=== PATIENT | female | born 1980 | race Caucasian/White ===

== ENCOUNTER 2021-06-26 12:42 | Day surgery (SDC) | payer BC ==
[~2021-06-26] VITALS: Ht 165.1 cm; Wt 66.0 kg
[~2021-06-26 12:42] MED LIST: ACETAMINOPHEN 500 MG TABLET PO PRN; HYDROmorphone 2 MG/ML INJ. IVP PRN; IV RINGERS,LACTATED 1000ML 1,000 ML IV SCH; MORPHINE SULFATE 2 MG/ML INJ. IVP PRN; PROCHLORPERAZINE 10 MG/2 ML VIAL. IVP PRN; ceFAZolin SODIUM IV Push 1 GM VIAL. IVP PRN; fentaNYL PF VIAL 100 MCG/2 ML VIAL IVP PRN
[2021-06-26] MEDS ORDERED: FLUO10TA PO (13:15)
[2021-06-26] MEDS ORDERED: ETHI1TAB7 PO (13:15)
[2021-06-26 13:17] VITALS: BP 117/63
[2021-06-26] MEDS ORDERED: fentaNYL PF VIAL 100 MCG/2 ML VIAL ONE ×3 (13:54→15:48)
[2021-06-26] MEDS ORDERED: FAMOTIDINE 20 MG/2 ML VIAL IVP ONE (14:00)
[2021-06-26] MEDS ORDERED: ROCURONIUM 50 MG/5 ML VIAL. ONE (14:03)
[2021-06-26] MEDS ORDERED: BUPIVACAINE-EPI 0.25%-1:200000 MPF 30 ML VIAL. ONE (14:06)
[2021-06-26] MEDS ORDERED: DEXAMETHASONE SOD PHOS 4 MG/ML VIAL ONE (14:07)
[2021-06-26] MEDS ORDERED: LIDOCAINE 1% PF 5 ML VIAL. ONE (14:07)
[2021-06-26] MEDS ORDERED: PROPOFOL 10 MG/ML (20ML) VIAL. IV ONE (14:07)
[2021-06-26] MEDS ORDERED: ONDANSETRON PF 4 MG/2 ML VIAL. ONE (14:07)
[2021-06-26] MEDS ORDERED: SUGAMMADEX SODIUM 200 MG/2 ML VIAL. IVP ONE (14:15)
[2021-06-26] MEDS ORDERED: ePHEDrine PF IN SALINE 50 MG/10 ML SYRINGE. IV ONE (14:46)
[2021-06-26] MEDS ORDERED: PHENYLEPHRINE in 0.9% NACL PF 1 MG/10 ML SYRINGE. IV ONE (14:53)
--- NOTE | 2021-06-26 15:09 | PDOC4 ---
Operative Note Operative Note Date: June 262021 at 3:06 PM Preoperative diagnosis: Chronic cholecystitis cholelithiasis Postoperative diagnosis: Same Procedure: Laparoscopic cholecystectomy with fluorescein cholangiography Surgeon: Demetrio Specimen: Gallbladder Auto Glass Worker: None Dictation: Patient is a 40-year-old female with right upper quadrant abdominal pain and gallstones by ultrasound. Procedure laparoscopic cholecystectomy was explained to the patient in detail all risk benefits were also discussed including bleeding infection injury to intra-abdominal contents possible necessitating further open operations alternatives this procedure also discussed with the patient who seemed to understand and gave a verbal written consent had procedure performed. Patient was taken to the operating room placed in the supine position general anesthesia was initiated once patient was sleeping abated her abdomen was prepped and draped usual sterile fashion using ChloraPrep. Area just below the umbilicus was injected with quarter percent Marcaine with epinephrine incision was made 11 blade scalpel and a varies needle was placed within the abdomen creating pneumoperitoneum once this was complete 11 mm port was placed and a 5 mm camera was placed within the abdomen which was inspected no other abnormalities were noted 5 mm port was placed in the epigastrium a 5 mm port was placed in the right midabdomen and 5 mm port was placed in the right lateral abdomen all under direct visualization. The dome of the gallbladder is grasped retracted cephalad the infundibulum the gallbladder is grasped retracted laterally exposing the triangle adherent tissues the triangle were taken down exposing the cystic duct and cystic artery fluorescing cholangiography was performed which showed good dye within the cystic duct and common bile duct without any evidence of obstruction the cystic duct was doubly clipped and transected the cystic artery was clipped and transected the gallbladder is taken off the liver with hook electrocautery placed in Endo Catch bag removed the umbilicus. Right upper quadrant was irrigated and suctioned dry hemostasis deemed be appropriate the pneumoperitoneum was reduced all ports were removed the fascial defect at the umbilicus was closed with a [id number] 0 Vicryl suture. All port sites were all closed with 4-0 subcuticular Monocryl Mastisol Steri-Strips and island dressings were applied. Patient was awakened extubated in the operating room taken to recovery in stable condition all sponge instrument needle counts listed as correct estimated blood loss 10 mL UDAY LESLIE MD Jun 26, 2021 15:09
[2021-06-26] MEDS ORDERED: OXYC-325 PO (15:10)
--- NOTE | 2021-06-26 15:12 | DISCH ---
DISCHARGE INSTRUCTIONS Condition on Discharge Condition on Discharge: Stable Activity After Discharge Activity Instructions for Disc: Avoid exertion Other activity instructions: No lifting more than 20 pounds for 2 weeks Diet after Discharge Diet after Discharge: Low Fat Wound Incision Care Other wound/incision instructi: Tayal shower in 24-hour Contacting the after DC Call your doctor for: If your condition worsens Follow-Up Follow up with: Dr. Leslie in 2 weeks UDAY LESLIE MD Jun 26, 2021 15:12
[2021-06-26] MEDS ORDERED: oxyCODONE/APAP 5/325 1 TAB TABLET PO ONE (15:30)
[2021-06-26 16:20] VITALS: BP 120/70
== END 2021-06-26 17:01 | disposition home or self-care (01) ==
LOC: SURG 12:42
PROVIDERS: ATTEND Surgery
DX: K80.10 Calculus of gallbladder with chronic cholecystitis without obstruction (principal); F32.9 Major depressive disorder, single episode, unspecified; Z87.891 Personal history of nicotine dependence; Z79.899 Other long term (current) drug therapy; Z98.890 Other specified postprocedural states
CPT/HCPCS: 47563; 81025; J0690; J1100; J2370; J2405; J2704; J3010; J3490; A4364; A4452; A4657; A4930; A6219